=== PATIENT | male | born 1970 | race African-American/Black ===

== ENCOUNTER 2021-01-08 15:20 | Inpatient (IN) ==
[2021-01-08 18:50] LABS: Basophils # 0.1 10*3/uL (0.0-0.2); Basophils % 0.4 % (0.0-0.8); Eosinophils # 0.2 10*3/uL (0.0-0.87); Eosinophils % 1.6 % (0.00-10.9); Hematocrit 38.9 VOL% (42.0-52.0); Hemoglobin 13.1 GM/DL (14.0-18.0); Immature Granulocytes Absolute 0.14 #; Lymphocytes # 1.4 10*3/uL (1.4-4.0); Mean Corpuscular HGB Conc 33.7 GM/DL (32-36); Mean Corpuscular Volume 83.8 FL (87-102); Mean Platelet Volume 10.1 FL (9.6-12.0); Monocytes % 8.4 % (1.7-12.7); Neutrophils % 78.6 % (38.7-73.9); Platelet Count 261 T/CUMM (130-400); Red Blood Count 4.64 MC/CUMM (3.8-5.5); Red Cell Distribution Width 19.5 % (9.3-17.3); White Blood Count 14.1 T/CUMM (4-12)
[2021-01-08 19:15] LABS: Albumin 3.6 G/DL (3.4-5.0); Bilirubin,Total 0.5 MG/DL (0.20-1.00); Calcium 8.9 MG/DL (8.5-10.1); Osmolality,Calculated 282.3 MOS/KG (273-304); Potassium 2.9 MMOL/L (3.5-5.1); Total Protein 6.6 G/DL (6.4-8.2)
[2021-01-08] MEDS ORDERED: PROMETHAZINE INJ 12.5 MG in SODIUM CHLORIDE 0.9% 50 ML IV STA (19:56)
[2021-01-08] MEDS ORDERED: POTASSIUM CHLORIDE 20 MEQ TABLET PO STA (19:56)
[2021-01-08] MEDS ORDERED: DEXTROSE 50% 25 GM/50 ML VIAL IV PRN (20:02)
[2021-01-08] MEDS ORDERED: GLUCAGON 1 MG VIAL IM PRN (20:02)
[2021-01-08] MEDS ORDERED: ONDANSETRON 4 MG/2 ML VIAL IV PRN (20:08)
[2021-01-08] MEDS ORDERED: ENOXAPARIN 40 MG/0.4 ML SYRINGE SUBCUT SCH (20:30)
[2021-01-08] MEDS ORDERED: IBUPROFEN 200 MG TABLET PO PRN (20:54)
[2021-01-08] MEDS ORDERED: hydrALAZINE 20 MG/1 ML VIAL IV PRN (20:57)
[2021-01-08 21:47] LABS: Bilirubin,Urine Negative (Negative); Blood, Urine Negative (Negative); Glucose,Urine (UA) Negative (Negative); Ketones,Urine Negative (Negative); Mucus,Urine Occasional /LPF (Occasional); Nitrite,Urine Negative (Negative); Protein,Urine 30 MG/DL; RBC,Urine 2 /HPF (0-4); Urine Appearance CLEAR (Clear); Urine Color Yellow (Yellow); Urine Specific Gravity 1.019 (1.001-1.035); Urine Urobilinogen < 2.0 EU/DL (0.2-1.0)
[2021-01-08] MEDS ORDERED: PROMETHAZINE 25 MG/1 ML VIAL ONE (22:05)
[2021-01-08 22:15] LABS: Barbiturates Screen,Urine Negative (Negative); Benzodiazepines Screen,Urine Negative (Negative); Cannabinoid Screen,Urine Negative (Negative); Opiate Screen,Urine Positive (Negative); Phencyclidine Screen,Urine Negative (Negative)
[2021-01-08] MEDS: PIPERACILLIN/TAZOBACTAM 3,375 MG in SODIUM CHLORIDE 0.9% 100 ML IV SCH (22:16)
[2021-01-08] MEDS: SODIUM CHLORIDE 0.45% 1,000 ML IV SCH (22:18)
[2021-01-08] MEDS: PANTOPRAZOLE 40 MG VIAL IV SCH (22:58)
[2021-01-08] MEDS: POTASSIUM CHLORIDE RIDER 10 MEQ/100 ML PREMIX IV SCH (23:01)
[2021-01-09] MEDS: MORPHINE 2 MG/1 ML SYRINGE IV PRN ×3 (00:14→11:31)
[2021-01-09] MEDS: POTASSIUM CHLORIDE RIDER 10 MEQ/100 ML PREMIX IV SCH ×6 (00:17→13:47)
[2021-01-09] MEDS: IBUPROFEN 400 MG TABLET PO PRN ×2 (00:24→09:02)
[2021-01-09] MEDS: PIPERACILLIN/TAZOBACTAM 3,375 MG in SODIUM CHLORIDE 0.9% 100 ML IV SCH ×2 (04:40→12:40)
[2021-01-09] MEDS: SODIUM CHLORIDE 0.45% 1,000 ML IV SCH (04:52)
[2021-01-09 07:27] LABS: Basophils # 0.1 10*3/uL (0.0-0.2); Basophils % 0.5 % (0.0-0.8); Eosinophils # 0.3 10*3/uL (0.0-0.87); Eosinophils % 2.7 % (0.00-10.9); Hematocrit 34.8 VOL% (42.0-52.0); Hemoglobin 11.6 GM/DL (14.0-18.0); Immature Granulocytes % 0.7 %; Immature Granulocytes Absolute 0.08 #; Lymphocytes # 1.3 10*3/uL (1.4-4.0); Lymphocytes % 12.3 % (21.2-54.2); Mean Corpuscular HGB Conc 33.3 GM/DL (32-36); Mean Corpuscular Volume 83.5 FL (87-102); Mean Platelet Volume 10.7 FL (9.6-12.0); Monocytes % 9.7 % (1.7-12.7); Neutrophils % 74.1 % (38.7-73.9); Platelet Count 241 T/CUMM (130-400); Red Blood Count 4.17 MC/CUMM (3.8-5.5); Red Cell Distribution Width 19.6 % (9.3-17.3); White Blood Count 10.8 T/CUMM (4-12)
[2021-01-09 08:04] LABS: Alanine Aminotransferase 13 U/L (16-61); Albumin 2.9 G/DL (3.4-5.0); Alkaline Phosphatase 105 U/L (45-117); Aspartate Amino Transferase 6 U/L (0-37); Bilirubin,Total < 0.39 MG/DL (0.20-1.00); Blood Urea Nitrogen 17 MG/DL (7-18); Calcium 8.5 MG/DL (8.5-10.1); Carbon Dioxide 12 MMOL/L (21-32); Estimated Glom Filtration Rate 166 ML/MIN; Glucose 85 MG/DL (74-106); HDL Cholesterol 18 MG/DL (40-60); Osmolality,Calculated 283.1 MOS/KG (273-304); Risk Ratio 5.39; Sodium 142 MMOL/L (136-145); Total Protein 6.1 G/DL (6.4-8.2); Triglycerides 192 MG/DL (2-150); VLDL Cholesterol 38.4 MG/DL
[2021-01-09] MEDS ORDERED: amLODIPine 10 MG TABLET PO SCH (09:00)
[2021-01-09] MEDS ORDERED: PANTOPRAZOLE 40 MG TABLET PO SCH (09:00)
[2021-01-09] MEDS ORDERED: lisinopriL 20 MG TABLET PO SCH (09:00)
[2021-01-09] MEDS: PANTOPRAZOLE 40 MG VIAL IV SCH (09:01)
[2021-01-09 15:51] VITALS: BP 146/77
== END 2021-01-09 17:11 | disposition home or self-care (01) | DRG 392 ==
LOC: N.ED 15:20 → N.EDINP 20:05 → N.5E 22:57
PROVIDERS: ADMIT Internal Medicine; ATTEND Internal Medicine

== ENCOUNTER 2021-01-19 12:55 | Inpatient (IN) ==
[2021-01-19] MEDS ORDERED: CLINDAMYCIN INJ 600 MG/50 ML PREMIX IV STA (14:54)
[2021-01-19 15:17] LABS: Basophils # 0.1 10*3/uL (0.0-0.2); Basophils % 0.4 % (0.0-0.8); Eosinophils # 0.2 10*3/uL (0.0-0.87); Eosinophils % 0.9 % (0.00-10.9); Hematocrit 34.2 VOL% (42.0-52.0); Hemoglobin 11.5 GM/DL (14.0-18.0); Immature Granulocytes % 0.6 %; Immature Granulocytes Absolute 0.15 #; Lymphocytes # 1.1 10*3/uL (1.4-4.0); Lymphocytes % 4.8 % (21.2-54.2); Mean Corpuscular HGB Conc 33.6 GM/DL (32-36); Mean Corpuscular Volume 85.1 FL (87-102); Mean Platelet Volume 10.6 FL (9.6-12.0); Monocytes % 6.1 % (1.7-12.7); Neutrophils % 87.2 % (38.7-73.9); Platelet Count 394 T/CUMM (130-400); Red Blood Count 4.02 MC/CUMM (3.8-5.5); Red Cell Distribution Width 19.2 % (9.3-17.3); White Blood Count 23.1 T/CUMM (4-12)
[2021-01-19 15:31] LABS: Calcium 8.8 MG/DL (8.5-10.1); INR 1.2; Osmolality,Calculated 285.3 MOS/KG (273-304); PT Patient Result 12.8 SECS (10.5-12.0)
[2021-01-19 15:37] LABS: Potassium 2.5 MMOL/L (3.5-5.1)
[2021-01-19] MEDS ORDERED: POTASSIUM CHLORIDE 20 MEQ TABLET PO ONE (15:38)
[2021-01-19] MEDS ORDERED: POTASSIUM CHLORIDE 20 MEQ TABLET PO STA (15:39)
[2021-01-19] MEDS ORDERED: DEXTROSE 50% 25 GM/50 ML VIAL IV PRN (16:03)
[2021-01-19] MEDS ORDERED: ONDANSETRON 4 MG/2 ML VIAL IV PRN (16:03)
[2021-01-19] MEDS ORDERED: GLUCAGON 1 MG VIAL IM PRN (16:03)
[2021-01-19] MEDS: metroNIDAZOLE INJ 500 MG/100 ML PREMIX IV SCH ×2 (16:33→22:27)
[2021-01-19 16:54] LABS: Lymphocytes 5 % (20-55); Segmented Neutrophils 92 % (50-85); Total Cells Counted 100
[2021-01-19 16:55] LABS: Burr Cells Few; Hypochromasia 2+; Microcytosis Slight; Platelet Estimate Increased
[2021-01-19] MEDS: cefTRIAXone 2,000 MG in SODIUM CHLORIDE 0.9% 100 ML IV SCH (17:45)
[2021-01-19] MEDS: SODIUM BICARB INJ 50 MEQ in SODIUM CHLORIDE 0.45% 1,000 ML IV SCH (17:45)
[2021-01-19] MEDS: NICOTINE 21 MG/24 HR PATCH TRANSDERM SCH (20:46)
[2021-01-19] MEDS: MORPHINE 2 MG/1 ML SYRINGE IV PRN (21:30)
[2021-01-19] MEDS: ZALEPLON 5 MG CAPSULE PO PRN (22:35)
[2021-01-20] MEDS: MORPHINE 2 MG/1 ML SYRINGE IV PRN ×5 (02:05→20:44)
[2021-01-20] MEDS: metroNIDAZOLE INJ 500 MG/100 ML PREMIX IV SCH (04:25)
[2021-01-20] MEDS: POTASSIUM CHLORIDE 20 MEQ TABLET PO PRN ×4 (04:25→11:06)
[2021-01-20 05:51] LABS: Albumin 2.6 G/DL (3.4-5.0); Bilirubin,Total 0.5 MG/DL (0.20-1.00); Calcium 8.4 MG/DL (8.5-10.1); Osmolality,Calculated 286.8 MOS/KG (273-304); Total Protein 5.9 G/DL (6.4-8.2)
[2021-01-20] MEDS: cefTRIAXone 2,000 MG in SODIUM CHLORIDE 0.9% 100 ML IV SCH (06:15)
[2021-01-20 06:22] LABS: Basophils # 0.1 10*3/uL (0.0-0.2); Basophils % 0.6 % (0.0-0.8); Eosinophils # 0.4 10*3/uL (0.0-0.87); Eosinophils % 3.5 % (0.00-10.9); Hematocrit 29.2 VOL% (42.0-52.0); Hemoglobin 9.9 GM/DL (14.0-18.0); Immature Granulocytes % 0.6 %; Immature Granulocytes Absolute 0.06 #; Lymphocytes # 1.2 10*3/uL (1.4-4.0); Lymphocytes % 12.2 % (21.2-54.2); Mean Corpuscular HGB Conc 33.9 GM/DL (32-36); Mean Corpuscular Volume 86.1 FL (87-102); Mean Platelet Volume 10.4 FL (9.6-12.0); Monocytes % 8.4 % (1.7-12.7); Neutrophils % 74.7 % (38.7-73.9); Platelet Count 317 T/CUMM (130-400); Red Blood Count 3.39 MC/CUMM (3.8-5.5); Red Cell Distribution Width 19.1 % (9.3-17.3)
[2021-01-20] MEDS: amLODIPine 10 MG TABLET PO SCH (08:53)
[2021-01-20] MEDS: FERROUS SULFATE 325 MG TABLET PO SCH (08:53)
[2021-01-20] MEDS: CYANOCOBALAMIN 500 MCG TABLET PO SCH (08:53)
[2021-01-20] MEDS: NICOTINE 21 MG/24 HR PATCH TRANSDERM SCH (08:53)
[2021-01-20] MEDS: ASCORBIC ACID 500 MG TABLET PO SCH (08:54)
[2021-01-20] MEDS ORDERED: PANTOPRAZOLE 40 MG TABLET PO SCH (09:00)
[2021-01-20] MEDS: SODIUM BICARB INJ 50 MEQ in SODIUM CHLORIDE 0.45% 1,000 ML IV SCH ×2 (11:07→21:49)
[2021-01-20] MEDS: AMPICILLIN/SULBACTAM 3,000 MG in SODIUM CHLORIDE 0.9% 100 ML IV SCH ×2 (17:09→22:44)
[2021-01-20] MEDS: PANTOPRAZOLE 40 MG TABLET PO SCH (20:34)
[2021-01-20] MEDS: ENOXAPARIN 40 MG/0.4 ML SYRINGE SUBCUT SCH (20:38)
[2021-01-20] MEDS: ZALEPLON 5 MG CAPSULE PO PRN (23:18)
[2021-01-21] MEDS: AMPICILLIN/SULBACTAM 3,000 MG in SODIUM CHLORIDE 0.9% 100 ML IV SCH ×4 (04:42→22:00)
[2021-01-21 06:24] LABS: Basophils # 0.1 10*3/uL (0.0-0.2); Basophils % 0.8 % (0.0-0.8); Eosinophils # 0.2 10*3/uL (0.0-0.87); Eosinophils % 3.6 % (0.00-10.9); Hematocrit 29.2 VOL% (42.0-52.0); Hemoglobin 9.9 GM/DL (14.0-18.0); Immature Granulocytes % 0.5 %; Immature Granulocytes Absolute 0.03 #; Lymphocytes # 0.9 10*3/uL (1.4-4.0); Lymphocytes % 13.8 % (21.2-54.2); Mean Corpuscular HGB Conc 33.9 GM/DL (32-36); Mean Corpuscular Volume 84.9 FL (87-102); Monocytes % 7.3 % (1.7-12.7); Platelet Count 360 T/CUMM (130-400); Red Blood Count 3.44 MC/CUMM (3.8-5.5); Red Cell Distribution Width 18.3 % (9.3-17.3); White Blood Count 6.5 T/CUMM (4-12)
[2021-01-21 06:43] LABS: Potassium 2.6 MMOL/L (3.5-5.1)
[2021-01-21] MEDS: POTASSIUM CHLORIDE 20 MEQ TABLET PO PRN (07:00)
[2021-01-21] MEDS: NICOTINE 21 MG/24 HR PATCH TRANSDERM SCH (09:22)
[2021-01-21] MEDS: PANTOPRAZOLE 40 MG TABLET PO SCH ×2 (09:23→20:50)
[2021-01-21] MEDS: FERROUS SULFATE 325 MG TABLET PO SCH (09:23)
[2021-01-21] MEDS: CYANOCOBALAMIN 500 MCG TABLET PO SCH (09:23)
[2021-01-21] MEDS: amLODIPine 10 MG TABLET PO SCH (09:26)
[2021-01-21] MEDS: ASCORBIC ACID 500 MG TABLET PO SCH (10:01)
[2021-01-21] MEDS ORDERED: POTASSIUM CHLORIDE 20 MEQ TABLET PO ONE (11:00)
[2021-01-21] MEDS: ENOXAPARIN 40 MG/0.4 ML SYRINGE SUBCUT SCH (20:50)
[2021-01-21] MEDS: ZALEPLON 5 MG CAPSULE PO PRN (22:15)
[2021-01-21] MEDS: SODIUM BICARB INJ 50 MEQ in SODIUM CHLORIDE 0.45% 1,000 ML IV SCH (22:16)
[2021-01-22] MEDS: AMPICILLIN/SULBACTAM 3,000 MG in SODIUM CHLORIDE 0.9% 100 ML IV SCH ×3 (03:47→14:09)
[2021-01-22 05:46] LABS: Basophils # 0.1 10*3/uL (0.0-0.2); Basophils % 1.1 % (0.0-0.8); Eosinophils # 0.3 10*3/uL (0.0-0.87); Eosinophils % 4.1 % (0.00-10.9); Hematocrit 28.9 VOL% (42.0-52.0); Immature Granulocytes % 0.4 %; Immature Granulocytes Absolute 0.03 #; Lymphocytes # 1.3 10*3/uL (1.4-4.0); Mean Corpuscular HGB Conc 34.6 GM/DL (32-36); Mean Corpuscular Volume 83.8 FL (87-102); Mean Platelet Volume 10.2 FL (9.6-12.0); Monocytes % 7.4 % (1.7-12.7); Platelet Count 408 T/CUMM (130-400); Red Blood Count 3.45 MC/CUMM (3.8-5.5); Red Cell Distribution Width 18.4 % (9.3-17.3); White Blood Count 7.1 T/CUMM (4-12)
[2021-01-22 06:25] LABS: Calcium 8.2 MG/DL (8.5-10.1)
[2021-01-22 06:29] LABS: Potassium 2.5 MMOL/L (3.5-5.1)
[2021-01-22] MEDS: POTASSIUM CHLORIDE 20 MEQ TABLET PO SCH ×2 (07:05→11:02)
[2021-01-22] MEDS: SODIUM BICARB INJ 50 MEQ in SODIUM CHLORIDE 0.45% 1,000 ML IV SCH ×2 (09:58→14:52)
[2021-01-22] MEDS: CYANOCOBALAMIN 500 MCG TABLET PO SCH (10:03)
[2021-01-22] MEDS: NICOTINE 21 MG/24 HR PATCH TRANSDERM SCH (10:03)
[2021-01-22] MEDS: ASCORBIC ACID 500 MG TABLET PO SCH (10:03)
[2021-01-22] MEDS: PANTOPRAZOLE 40 MG TABLET PO SCH (10:03)
[2021-01-22] MEDS: FERROUS SULFATE 325 MG TABLET PO SCH (10:03)
[2021-01-22] MEDS: amLODIPine 10 MG TABLET PO SCH (10:03)
[2021-01-22 11:36] VITALS: BP 151/90
[2021-01-22] MEDS ORDERED: POTASSIUM CHLORIDE 20 MEQ TABLET PO ONE (13:27)
[2021-01-22] MEDS ORDERED: CHLORHEXIDINE 0.12% ORAL RINSE 60 ML BOTTLE SWISH/SPIT SCH (21:00)
== END 2021-01-22 15:10 | disposition home or self-care (01) | DRG 158 ==
LOC: N.ED 12:55 → SUATTDRO 16:03 → N.EDINP 16:03 → N.5E 01-20 02:19
PROVIDERS: ADMIT Internal Medicine; ATTEND Internal Medicine